=== PATIENT | female | born 1985 | race Caucasian/White ===

== ENCOUNTER → 2021-05-04 10:09 | Outpatient (BNVA) | payer MEDICAID, SELFPAY | PROVIDERS: PCP Internal Medicine; Visit Provider Internal Medicine ==

== ENCOUNTER 2021-05-11 10:39 | Outpatient (REF) | payer MEDICAID, SELFPAY ==
[2021-05-11 11:22] LABS: MANUAL DIFF FLAG NO
[2021-05-11 11:34] LABS: Basophils Percent Auto 0.2 % (0-2); Eosinophils Absolute Auto 0.3 X10*3/uL (0.0-0.4); Eosinophils Percent Auto 2.3 % (0-4); Hematocrit 42.6 % (37-47); Imm Gran Abs Auto 0.05 X10*3/uL (0.00-0.03); Imm Gran Pct Auto 0.4 % (0.0-0.4); Lymphocytes Percent Auto 31.6 % (20-40); Mean Corpuscular HGB Conc 32.9 g/dl (31.0-35.0); Mean Corpuscular Hemoglobin 28.6 pg (27.0-33.0); Mean Corpuscular Volume 86.9 fL (80-98); Mean Platelet Volume 11.6 fL (9.4-12.3); Monocytes Absolute Auto 0.5 X10*3/uL (0.1-1.2); Monocytes Percent Auto 3.8 % (2-11); Neutrophils Absolute Auto 7.8 X10*3/uL (2.0-8.3); Neutrophils Percent Auto 61.7 % (45-73); Platelet Count 317 X10*3/uL (160-400); Red Cell Distribution Width 12.1 % (11.0-16.0); White Blood Count 12.6 X10*3/uL (4.8-10.8)
[2021-05-11 12:16] LABS: ~HepC Num1 0.11 S/CO (0.00-0.79); ~Hepatitis C Antibody Nonreactive (Nonreactive)
[2021-05-11 12:37] LABS: Folate 11.6 ng/mL (> or = 4.0); HBS Num1 > 1000.00 mIU/mL (0-7.99); HIV AB/AG Nonreactive (Nonreactive); HIV Num 1 0.05 S/CO (0.00-0.99); Vitamin B12 462 pg/mL (200-900); ~Hepatitis B Surface Antibody REACTIVE (Nonreactive)
[2021-05-11 12:39] LABS: Vitamin D 25-OH Total 39.5 ng/mL (>30)
[2021-05-11 12:40] LABS: Alanine Aminotransferase 25 U/L (0-31); Albumin Level 4.3 g/dL (3.5-5.0); Alkaline Phosphatase 144 U/L (39-117); Anion Gap 16 (12-20); Aspartate Amino Transferase 18 U/L (5-31); Bilirubin Total 0.2 mg/dL (0.0-1.0); Blood Urea Nitrogen 14 mg/dL (9-16); Calcium 9.6 mg/dL (8.4-10.2); Carbon Dioxide 21 mmol/L (22-29); Chloride 104 mmol/L (96-108); Cholesterol 166 mg/dL; Estimated Glomerular Filt Rate > 60; Glucose Random 121 mg/dL (60-115); HDL Cholesterol 35 mg/dL; LDL Cholesterol Calculated 102 mg/dl; Magnesium 2.2 mg/dL (1.6-2.6); Potassium 4.4 mmol/L (3.3-5.1); Sodium 137 mmol/L (135-145); Total Protein 7.1 g/dL (6.5-8.0); Triglycerides 145 mg/dL
[2021-05-11 12:51] LABS: Free T4 (Free Thyroxine) 0.88 ng/dL (0.71-1.85); Thyroid Stimulating Hormone 0.72 uIU/mL (0.32-4.0)
[2021-05-11 13:49] LABS: Estimated Average Glucose 114 mg/dL; Hemoglobin A1c % 5.6 %
[2021-05-12 11:47] LABS: Thyroglobulin Antibodies <1 IU/mL (< or = 1); Thyroid Peroxidase Antibodies <1 IU/mL (<9)
[2021-05-12 17:56] LABS: Triiodothyronine T3 Total 194 ng/dL (76-181)
[2021-05-16 19:36] LABS: Thyrotropin Receptor Antibody <1.00 IU/L (<=2.00)
[2021-05-17 14:26] LABS: Thyroid Stimulating Immunoglob <89 % baseline (<140)
== END 2021-05-11 10:40 | disposition home or self-care (01) ==
LOC: HO.LAB 10:39
PROVIDERS: Absent Provider Counselor Addiction (Substance Use Disorder); PCP Internal Medicine; Visit Provider Internal Medicine
DX: E05.00 Thyrotoxicosis with diffuse goiter without thyrotoxic crisis or storm (principal); F43.12 Post-traumatic stress disorder, chronic; F41.1 Generalized anxiety disorder; F33.2 Major depressive disorder, recurrent severe without psychotic features; F11.21 Opioid dependence, in remission; F14.21 Cocaine dependence, in remission
CPT/HCPCS: 36415; 80053; 80061; 82306; 82607; 82746; 83036; 83520; 83735; 84439; 84443; 84445; 84480; 85025; 86376; 86706; 86800; 86803; 87389

== ENCOUNTER 2021-06-08 10:18 | Outpatient (REF) | payer MEDICAID, SELFPAY ==
--- NOTE | ~2021-06-08 | US_ITS ---
EXAMINATION: US THYROID CLINICAL INFORMATION: Nontoxic multinodular goiter. COMPARISON: Ultrasound soft tissue head/neck thyroid dated 11/19/2018. TECHNIQUE: Linear transducer grayscale and color Doppler examination with attention to the region of the thyroid. FINDINGS: SIZE: Measurements of the thyroid lobes and nodules are given in sagittal, anteroposterior and transverse dimensions respectively. Right Thyroid Lobe: 6.4 x 3.4 x 3.5 cm, volume 39.5 mL. Previously 5.1 x 3.1 x 3.2 cm, volume 26.4 mL. Parenchyma: The gland echotexture is heterogeneous. Thyroid vascularity is normal. Left Thyroid Lobe: 5.6 x 1.9 x 2.0 cm, volume 11.0 mL. Previously 4.2 x 1.6 x 1.1 cm, volume 4.0 mL. Parenchyma: The gland echotexture is homogeneous. Thyroid vascularity is normal. Isthmus: 0.3 cm in maximum AP dimension. Previously 0.2 cm. Estimated total number of nodules greater than or equal to 1 cm: 1. Pmp Certified Project Manager nodules are described as follows: 1. Location: Right mid/inferior. Size: 4.1 x 3.3 x 3.4 cm, volume 23.6 mL. Previously: 4.5 x 2.7 x 3.1 cm, volume 19.7 mL. Nodule characteristics: Composition: Solid/almost completely solid (2). Echogenicity: Hypoechoic (2). Shape: Not taller than wide (0). Margins: Smooth (0). Echogenic Foci: None (0). ACR TI-RADS total points: 4 ACR TI-RADS category: 4 Significant change in size (>/= 20% in 2 dimensions and minimal increase of 2 mm or 50% or greater increase in volume): None Change in features: None Change in ACR TI-RADS risk category: Not applicable NODES: No lymphadenopathy is seen in the tissue surrounding the thyroid gland. US/US thyroid IMPRESSION: 1. Solitary heterogeneous nodule right lobe, stable. 2. The rest of the thyroid gland is unremarkable. ACR TI-RADS RECOMMENDATION REFERENCE: Ultrasound-guided fine-needle aspiration, followup ultrasound, no further follow up. * TR1 (0 point) and TR 2 (2 points): No FNA or follow up * TR3 (3 points): FNA if more than or equal to 2.5 cm in maximum dimension, followup ultrasound in 1, 3 and 5 years if 1.5 to 2.4 cm in maximum dimension. * TR4 (4-6 points): FNA if more than or equal to 1.5 cm in maximum dimension, followup ultrasound in 1, 2, 3 and 5 years if 1 to 1.4 cm in maximum dimension. * TR5 (more than or equal to 7 points): FNA if more than or equal to 1 cm in maximum dimension, followup ultrasound every year for 5 years if 0.5 to 0.9 cm in maximum dimension. * TR3, TR4 or TR5 nodules that are below the size threshold for follow up receive no follow up.
== END 2021-06-08 10:19 | disposition home or self-care (01) ==
LOC: HO.HMGCX 10:18
PROVIDERS: PCP Internal Medicine; Visit Provider Internal Medicine
DX: E04.2 Nontoxic multinodular goiter (principal)
CPT/HCPCS: 76536

== ENCOUNTER → 2021-07-18 07:36 | Outpatient (BNVA) | payer MEDICAID, SELFPAY | PROVIDERS: PCP Internal Medicine; Visit Provider Internal Medicine ==

== ENCOUNTER 2021-09-29 14:00 | Outpatient (REF) | payer MEDICAID, SELFPAY ==
[2021-09-29 16:05] LABS: Binax Internal Control QC Valid; Binax Now Covid-19 Ag Positive (Negative)
== END 2021-09-29 14:01 | disposition home or self-care (01) ==
LOC: HO.LAB 14:00
PROVIDERS: Visit Provider Internal Medicine
DX: Z20.822 Contact with and (suspected) exposure to COVID-19 (principal)
CPT/HCPCS: 36415; C9803

== ENCOUNTER 2021-10-06 10:08 | Outpatient (REF) | payer MEDICAID, SELFPAY ==
[2021-10-06 11:48] LABS: COVID-19 Test Positive (Negative)
== END 2021-10-06 10:09 | disposition home or self-care (01) ==
LOC: HO.LAB 10:08
PROVIDERS: Visit Provider Internal Medicine
DX: Z20.822 Contact with and (suspected) exposure to COVID-19 (principal)
CPT/HCPCS: 87635; C9803

== ENCOUNTER 2021-11-09 12:01 | Outpatient (REF) | payer MEDICAID, SELFPAY ==
[2021-11-09 12:30] LABS: COVID-19 Test Negative (Negative)
== END 2021-11-09 12:02 | disposition home or self-care (01) ==
LOC: HO.LAB 12:01
PROVIDERS: Visit Provider Internal Medicine
DX: Z20.822 Contact with and (suspected) exposure to COVID-19 (principal)
CPT/HCPCS: 87635; C9803

== ENCOUNTER 2022-11-03 11:24 | Emergency (ER) | payer MEDICAID, SELFPAY ==
[2022-11-03 11:30] VITALS: BP 118/72; BP 141/90; PULSE 107; PULSE 110; RESP 18; TEMP 37.3; O2SAT 100; O2SAT 98; BMI 36.5
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
--- OUTSIDE RECORDS SUMMARY | 2022-11-03 12:05 | XMS_ITS | Continuity of Care Document ---
:1985 Author Organization [facility] Address [address] [place] [id number]- Care Team Providers Name Role Phone Mini Hassan MD Primary Care Physician Encounter [facility] [place] Date(s): 06/25/19 - 09/07/[address] [address]- [facility] Attending Physician: Not on Staff, Attending MD Referring Physician: Mini Hassan MD Allergies, Adverse Reactions, Alerts Substance Reaction Severity [...] 06/28/19 8:05:32 EDT, Route to Pharmacy Electronically, [id number], [facility] #[id number] Start Date: 06/28/19 Status: Orderedalbuterol CFC free 90 mcg/inh inhalation aerosol 1, puffs, Inhalation, Every 4 hours, PRN, # 3 each, Refills 3, Tot. Refills 3, Maintenance, 03/28/1914:00:45 EDT, Aerosol, Route to Pharmacy Electronically, [id number], [facility] [id number] Start Date: 03/28/19 Status: Orderedbudesonide 90 mcg/inh [...] 06/28/19 8:05:33 EDT, Route to Pharmacy Electronically, [id number], [facility] #[id number] Start Date: 06/28/19 Status: Orderedmelatonin 10 mg [...] 06/28/19 15:26:32 EDT, Route to Pharmacy Electronically, [id number], [facility] #[id number] Start Date: 06/28/19 Status: OrderedQUEtiapine 50 mg [...] 1Hx of heroin use - last used [id number] reports at OBI visit that she is currently on Methadone 58mg daily - [facility] Social History Social History Type Response Tobacco Use: 4 or less cigarettes(le ss than 1/4 pack)/day in last 30 days. Sex
--- NOTE | 2022-11-03 12:08 | ECG_ITS ---
Test Reason : N/V Blood Pressure : / mmHG Vent. Rate : 108 BPM Atrial Rate : 108 BPM P-R Int : 158 ms QRS Dur : 074 ms QT Int : 336 ms P-R-T Axes : 050 008 011 degrees QTc Int : 450 ms Sinus tachycardia Possible Left atrial enlargement Borderline ECG No previous ECGs available Referred By: Ladonna Melendrez Electronically Signed By:JEROMY DAMON MD
[2022-11-03] MEDS: 0.9 % Sodium Chloride 1,000 ML 999 ML IV (12:20)
[2022-11-03 12:23] LABS: Basophils Percent Auto 0.1 % (0-2); Hematocrit 49.1 % (37.0-47.0); Hemoglobin 16.1 g/dl (12.0-16.0); Imm Gran Abs Auto 0.05 X10*3/uL (0.00-0.03); Imm Gran Pct Auto 0.3 % (0.0-0.4); Lymphocytes Absolute Auto 0.8 X10*3/uL (1.2-4.9); Lymphocytes Percent Auto 4.5 % (20-40); MANUAL DIFF FLAG SCAN; Mean Corpuscular HGB Conc 32.8 g/dl (31.0-35.0); Mean Corpuscular Volume 82.2 fL (80.0-98.0); Mean Platelet Volume 10.6 fL (9.4-12.3); Monocytes Absolute Auto 0.4 X10*3/uL (0.1-1.2); Monocytes Percent Auto 2.4 % (2-11); Neutrophils Absolute Auto 16.9 x10*3/uL (2.0-8.3); Neutrophils Percent Auto 92.7 % (45-73); Platelet Count 316 X10*3/uL (160-400); Red Blood Count 5.97 X10*6/uL (4.20-5.50); Red Cell Distribution Width 12.8 % (11.0-16.0); SCAN SMEAR FLAG 1; White Blood Count 18.2 X10*3/uL (4.8-10.8)
--- NOTE | 2022-11-03 12:28 | PC.NURSE ---
pt a&ox3, tachycardic/hypertensive, afebrile, pt reporting chills/body aches, 20G IV placed left AC, labs drawn, 1L NS running, tech at bedside obtaining EKG. pt pending ED provider.
--- NOTE | 2022-11-03 12:33 | ED.NAVMDI ---
HPI - Nausea/Vomiting/Diarrhea General Chief complaint: Nausea/Vomiting/Diarrhea Stated complaint: V/D per EMS Time Seen by Provider: 11/03/22 12:07 Source: patient Mode of arrival: EMS History of Present Illness HPI Narrative: 37-year-old female who presents with acute onset of nausea and vomiting without preceding abdominal pain or dysuria that started approximately 0230 this morning and she states that her daughter had similar symptoms 3 days ago. She denies any fevers or chills and states that her last diarrheal episode was this morning prior to EMS arrival. She does describe some abdominal wall discomfort since the onset of nausea and vomiting but otherwise is feeling better. Related Data Home Medications Medication Instructions Recorded Confirmed prazosin 5 mg capsule 5 mg PO BEDTIME 05/04/21 07/18/21 sertraline 100 mg tablet 100 mg PO DAILY 05/04/21 07/18/21 methadone 40 mg soluble tablet 73 mg PO DAILY 07/18/21 07/18/21 Previous Rx's Medication Instructions Recorded methimazole 10 mg tablet 10 mg PO DAILY 30 days #30 tabs 05/12/21 ondansetron HCl 4 mg tablet 8 mg PO Q8H PRN nausea and 11/03/22 vomiting 3 days #7 tabs Allergies Allergy/AdvReac Type Severity Reaction Status Date / Time Penicillins [PENICILLINS] Allergy Unknown UNKNOWN Verified 11/03/22 11:30 Sulfa (Sulfonamide Allergy Unknown ANAPHYLAXIS Verified 11/03/22 11:30 Antibiotics) [SULFA (SULFONAMIDE ANTIBIOTICS)] Review of Systems Review of Systems: Pertinent positives and negatives as stated in HPI PMFSH Past Medical History Source: nursing notes reviewed Medical History Multinodular thyroid Subclinical hyperthyroidism Vitamin D deficiency Surgical History Hx of section Hx of wisdom tooth extraction Family History Family History Father Diabetes mellitus Mother HTN (hypertension) Brother Thyroid condition Social History Social History Alcohol intake: never Patient Tobacco Use Status: Current everyday Tobacco user Tobacco use type: Cigarette Cigarettes Per Day: 3 Smoked in Last 30 Days: Yes Substance Use Type: Crack/Cocaine and Heroin Advance Directives: No Advance Directives Information Provided: Yes Patient : No Physical Exam Vital Signs: Vital Signs: Last Vital Signs Temp 99.1 F 11/03/22 11:30 Pulse 107 H 11/03/22 11:30 Resp 18 11/03/22 11:30 BP 141/90 H 11/03/22 11:30 Pulse Ox 98 11/03/22 11:30 O2 Del Method 11/03/22 11:30 BMI result Body Mass Index 36.5 VITAL SIGNS: Reviewed. GENERAL: Well developed, well nourished, in no acute distress. HEAD: Normocephalic/atraumatic EYES: PERRLA, EOMI EARS: Ext canals without abnormality OROPHARYNX: no oral lesions noted, posterior pharynx clear LUNGS: Normal breath sounds. No adventitious sounds or accessory muscle use. SpO2<98> CARDIOVASCULAR: Regular rate and rhythm without noted murmurs ABDOMEN: Soft, non-tender, non-distended with bowel sounds. MUSCULOSKELETAL: No tenderness, deformities, or effusions noted on gross inspection. EXTREMITIES: No cyanosis, clubbing or edema. SKIN: Inspection of the skin reveals no rashes NEUROLOGIC: Alert and oriented x 4. Strength and sensation to light touch were grossly intact x 4. Medications Administered Discontinued Medications Generic Name Dose Route Start Last Admin Trade Name Freq PRN Reason Stop Dose Admin Sodium Chloride 1,000 mls @ 999 mls/hr 11/03/22 12:15 11/03/22 12:20 Ns IV 11/03/22 13:15 999 mls/hr .Q1H1M RONAL Administration Ketorolac Tromethamine 15 mg 11/03/22 13:39 11/03/22 13:43 Ketorolac Tromethamine 30 Mg/Ml Vial IVPUSH 11/03/22 13:40 15 mg ONCE ONE Administration Ondansetron HCl 4 mg 11/03/22 12:31 11/03/22 12:37 Ondansetron Hcl 4 Mg/2 Ml Vial IVPUSH 11/03/22 12:32 4 mg ONCE ONE Administration Ondansetron HCl 4 mg 11/03/22 13:53 11/03/22 14:02 Ondansetron Hcl 4 Mg/2 Ml Vial IVPUSH 11/03/22 13:54 4 mg ONCE ONE Administration Medical Decision Making Medical Decision Making MDM Narrative: 37-year-old female with multiple episodes of nausea/vomiting/diarrhea. On review of all investigations my interpretation is that initial leukocytosis is reactive/stress and response to multiple episodes of nausea and vomiting as patient is afebrile. Patient was provided with Zofran which has eliminated her nausea and vomiting, she also received IV fluids and will be undergoing a p.o. trial. She has no suggestions of bacterial intra-abdominal illness, urinalysis is without acute findings, no stool was obtained and patient is had no further stooling episodes. She states that she is feeling better and if she is able to tolerate oral intake understands that she will be discharged home with a Zofran prescription and strict return precautions. Patient tolerating oral intake and given a GI cocktail as well as Carafate. Differential Diagnosis Differential Diagnoses: The differential diagnosis associated with the presentation includes Please see the discussion above Lab Data MDM Lab Attestation statement: I reviewed the patient's lab results. Please see the discussion above 11/03/22 12:18 11/03/22 12:18 Labs: Lab Results 11/03/22 11/03/22 11/03/22 Range/Units 12:18 12:25 13:37 WBC 18.2 H (4.8-10.8) X10*3/uL RBC 5.97 H (4.20-5.50) X10*6/uL Hgb 16.1 H (12.0-16.0) g/dl Hct 49.1 H (37.0-47.0) % MCV 82.2 (80.0-98.0) fL MCH 27.0 (27.0-33.0) pg MCHC 32.8 (31.0-35.0) g/dl RDW 12.8 (11.0-16.0) % Plt Count 316 (160-400) X10*3/uL MPV 10.6 (9.4-12.3) fL Immature Gran % (Auto) 0.3 (0.0-0.4) % Neut % (Auto) 92.7 H (45-73) % Lymph % (Auto) 4.5 L (20-40) % Gonzales % (Auto) 2.4 (2-11) % Eos % (Auto) 0.0 (0-4) % Baso % (Auto) 0.1 (0-2) % Lymph # (Auto) 0.8 L (1.2-4.9) X10*3/uL Gonzales # (Auto) 0.4 (0.1-1.2) X10*3/uL Eos # (Auto) 0.0 (0.0-0.4) X10*3/uL Baso # (Auto) 0.0 (0.0-0.2) X10*3/uL Abs Immat Gran (auto) 0.05 H (0.00-0.03) X10*3/uL Absolute Neuts (auto) 16.9 H (2.0-8.3) x10*3/uL Absolute Nucleated RBC 0.000 (0.0-0.012) X10*3/uL Nucleated RBC % (auto) 0.0 (0.0-0.2) /100WBC Smear Tech's Comments VERIFIED Sodium 140 (135-145) mmol/L Potassium 4.6 (3.3-5.1) mmol/L Chloride 111 H (96-108) mmol/L Carbon Dioxide 21 L (22-29) mmol/L Anion Gap 13 (12-20) BUN 17 H (9-16) mg/dL Creatinine 0.66 (0.5-1.4) mg/dL Estim Creat Clear Calc 152.3 Estimated GFR > 60 Random Glucose 119 H (60-115) mg/dL Calcium 8.7 D (8.4-10.2) mg/dL Total Bilirubin 0.5 (0.0-1.0) mg/dL AST 18 (5-31) U/L ALT 20 (0-31) U/L Alkaline Phosphatase 130 H (39-117) U/L Total Protein 6.6 (6.5-8.0) g/dL Albumin 4.0 (3.5-5.0) g/dL Lipase 12 (8-78) U/L Urine Color Urine Appearance Urine pH (5.0-9.0) Ur Specific [place] (1.005-1.025) Urine Protein (Neg-Trace) mg/dL Urine Glucose (UA) (Negative) mg/dL Urine Ketones (Negative) mg/dL Urine Blood (Negative) Urine Nitrite (Negative) Ur Leukocyte Esterase (Negative) Urine Test (NEGATIVE) Influenza Type A (PCR) NEGATIVE (Negative) Influenza Type B (PCR) NEGATIVE (Negative) RSV RNA Qual (PCR) NEGATIVE (Negative) SARS-CoV-2 RNA (RT-PCR) NEGATIVE (Negative) 11/03/22 11/03/22 Range/Units 13:37 13:37 WBC (4.8-10.8) X10*3/uL RBC (4.20-5.50) X10*6/uL Hgb (12.0-16.0) g/dl Hct (37.0-47.0) % MCV (80.0-98.0) fL MCH (27.0-33.0) pg MCHC (31.0-35.0) g/dl RDW (11.0-16.0) % Plt Count (160-400) X10*3/uL MPV (9.4-12.3) fL Immature Gran % (Auto) (0.0-0.4) % Neut % (Auto) (45-73) % Lymph % (Auto) (20-40) % Gonzales % (Auto) (2-11) % Eos % (Auto) (0-4) % Baso % (Auto) (0-2) % Lymph # (Auto) (1.2-4.9) X10*3/uL Gonzales # (Auto) (0.1-1.2) X10*3/uL Eos # (Auto) (0.0-0.4) X10*3/uL Baso # (Auto) (0.0-0.2) X10*3/uL Abs Immat Gran (auto) (0.00-0.03) X10*3/uL Absolute Neuts (auto) (2.0-8.3) x10*3/uL Absolute Nucleated RBC (0.0-0.012) X10*3/uL Nucleated RBC % (auto) (0.0-0.2) /100WBC Smear Tech's Comments Sodium (135-145) mmol/L Potassium (3.3-5.1) mmol/L Chloride (96-108) mmol/L Carbon Dioxide (22-29) mmol/L Anion Gap (12-20) BUN (9-16) mg/dL Creatinine (0.5-1.4) mg/dL Estim Creat Clear Calc Estimated GFR Random Glucose (60-115) mg/dL Calcium (8.4-10.2) mg/dL Total Bilirubin (0.0-1.0) mg/dL AST (5-31) U/L ALT (0-31) U/L Alkaline Phosphatase (39-117) U/L Total Protein (6.5-8.0) g/dL Albumin (3.5-5.0) g/dL Lipase (8-78) U/L Urine Color Yellow Urine Appearance Clear Urine pH 5.5 (5.0-9.0) Ur Specific [place] 1.025 (1.005-1.025) Urine Protein Negative (Neg-Trace) mg/dL Urine Glucose (UA) Negative (Negative) mg/dL Urine Ketones Negative (Negative) mg/dL Urine Blood Negative (Negative) Urine Nitrite Negative (Negative) Ur Leukocyte Esterase Negative (Negative) Urine Test NEGATIVE (NEGATIVE) Influenza Type A (PCR) (Negative) Influenza Type B (PCR) (Negative) RSV RNA Qual (PCR) (Negative) SARS-CoV-2 RNA (RT-PCR) (Negative) Independent Interpretation I performed an independent interpretation of an: EKG Interpretation: Sinus tachycardia, HR-108, no STEMI, NH/QRS/QTC is within normal limits. External Record Review External record reviewed: Outpatient record Critical Care Time Critical Care Time Critical Care Time: Yes Total Critical Care Time: 30 Attestation: I personally attest to this time spent taking care of the patient. Discharge Plan Discharge Clinical Impression: Gastroenteritis Patient Disposition: Home, Self-Care Instructions: Gastroenteritis (ED), Nutrition Tips for Relief of Diarrhea (ED) Additional Instructions: 1. Resume all home medications as prescribed. 2. Continue to increase the amount of fluid intake, you have been prescribed antinausea medications to help out with this. 3. Please follow-up with your primary care provider in the next 2-3 days. Return to the ER for any worsening symptoms. Prescriptions: New ondansetron HCl 4 mg tablet 8 mg PO Q8H PRN (Reason: nausea and vomiting) 3 Days Qty: 7 0RF No Action methimazole 10 mg tablet 10 mg PO DAILY 30 Days Qty: 30 2RF sertraline 100 mg tablet 100 mg PO DAILY prazosin 5 mg capsule 5 mg PO BEDTIME methadone 40 mg tablet,soluble 73 mg PO DAILY Referrals: Mini Hassan MD [Primary Care Provider] -
[2022-11-03] MEDS: ondansetron HCL 4 MG/2 ML VIAL IVPUSH ×2 (12:37→14:02)
[2022-11-03 12:48] LABS: SLIDE REVIEW VERIFIED
[2022-11-03 13:16] LABS: Influenza A PCR NEGATIVE (Negative); Influenza B PCR NEGATIVE (Negative); Resp Syncy Virus RNA Qual PCR NEGATIVE (Negative); SARS COV2 PCR INHOUSE NEGATIVE (Negative)
[2022-11-03] MEDS: Ketorolac Tromethamine 30 MG/ML VIAL 15 MG IVPUSH (13:43)
[2022-11-03 13:46] LABS: Appearance Urine Clear; Color Urine Yellow; Glucose Urine UA Negative (Negative); Leukocyte Esterase Urine Negative (Negative); Nitrite Urine Negative (Negative); PH 5.5 (5.0-9.0); Specific Gravity - Urine 1.025 (1.005-1.025); Urine Blood Negative (Negative); Urine Ketones Negative (Negative); Urine Protein Negative (Neg-Trace)
[2022-11-03 13:49] LABS: UPreg QC Valid YES; Urine Pregnancy NEGATIVE (NEGATIVE)
[2022-11-03 14:04] LABS: Alanine Aminotransferase 20 U/L (0-31); Alkaline Phosphatase 130 U/L (39-117); Anion Gap 13 (12-20); Aspartate Amino Transferase 18 U/L (5-31); Bilirubin Total 0.5 mg/dL (0.0-1.0); Blood Urea Nitrogen 17 mg/dL (9-16); Calcium 8.7 mg/dL (8.4-10.2); Carbon Dioxide 21 mmol/L (22-29); Chloride 111 mmol/L (96-108); Creatinine Clr Calc Pharmacy 152.3; Estimated Glomerular Filt Rate > 60; Glucose Random 119 mg/dL (60-115); Lipase 12 U/L (8-78); Potassium 4.6 mmol/L (3.3-5.1); Sodium 140 mmol/L (135-145); Total Protein 6.6 g/dL (6.5-8.0)
[2022-11-03] MEDS: Magnesium Hydrox/Alum Hydrox 30 ML ORAL.SUSP PO (15:12)
[2022-11-03] MEDS: Sucralfate Oral Suspension 1 GM/10 ML ORAL.SUSP PO (15:12)
[2022-11-03] MEDS: Lidocaine HCl Viscous 2 % 15 ML SOLUTION 10 ML MUCOUS MEM (15:12)
== END 2022-11-03 16:18 | disposition home or self-care (01) ==
PROVIDERS: Emergency Provider Student in an Organized Health Care Education/Training Program; PCP Internal Medicine
DX: K52.9 Noninfective gastroenteritis and colitis, unspecified (principal); R11.2 Nausea with vomiting, unspecified; R06.02 Shortness of breath; Z20.822 Contact with and (suspected) exposure to COVID-19; Z20.828 Contact with and (suspected) exposure to other viral communicable diseases; Z79.899 Other long term (current) drug therapy
CPT/HCPCS: 0241U; 36415; 80053; 81003; 81025; 83690; 85025; 93005; 96374; 96375; 96376; 99284; 99285; J1885; J2405

== ENCOUNTER 2023-04-04 08:32 | Outpatient (AMB) | payer MEDICAID, SELFPAY ==
--- NOTE | 2023-04-04 08:32 | A.OFFVIS_ITS ---
Intake Intake Visit Reasons: F/U Thyrotoxicosis Allergies Penicillins [PENICILLINS] Allergy (Unknown, Verified 04/04/23 09:37) UNKNOWN Sulfa (Sulfonamide Antibiotics) [SULFA (SULFONAMIDE ANTIBIOTICS)] Allergy (Unknown, Verified 04/04/23 09:37) ANAPHYLAXIS Medication List - Last Reconciled 04/04/23 by Tamika Briones, DO atomoxetine 10 mg PO QAM buspirone 10 mg PO DAILY PRN ibuprofen 400 mg PO Q8H PRN methadone 73 mg PO DAILY prazosin 5 mg PO BEDTIME quetiapine 50 mg PO BEDTIME PRN sertraline 100 mg PO DAILY HPI HPI Comments History of Present Illness Details 37 YO M/F with PMHx who is seen in F/U for a Multinodular Thyroid and subclinical hyperthyroidism. She was lost to follow up since 2020 and recently called to reestablish care. She was last seen by me in 2020. She was noted to have subclinical hyperthyroidism as well as a large 4.5 cm R sided thyroid nodule. She underwent FNA biopsy of this nodule 11/28/2018, with benign cytology. She was undergoing workup for her hyperthyroidism at that time, but found out she was and was lost to F/U. This was in 2018, and she then reestablished care in 2020 and was asked to have a thyroid uptake and scan and complete labs, but she failed to do so. She was previously started on Methimazole 10 mg PO daily by her Therapist Zoila Herrmann APRN. This was 08/2020. She has tolerated methimazole well without development of rash, jaundice or frequent infection. Labs revealed TSH low normal with elevated TT3. All antibodies were negative including TRAB, TSI, TPO and TG antibodies. She saw me after the fact in 2020 and was asked to repeat labs and F/U, as well as complete a thyroid uptake and scan, but she failed to do so. She reports feeling fatigued today. ?Denies any history of head or neck irradiation. Denies any family history of thyroid cancer. She does have a family history of hyeprthyroidism in her brother. ?Thyroid US: Right Thyroid Lobe: 6.4 x 3.4 x 3.5 cm, volume 39.5 mL. Previously 5.1 x 3.1 x 3.2 cm, volume 26.4 mL. Parenchyma: The gland echotexture is heterogeneous. Thyroid vascularity is normal. Left Thyroid Lobe: 5.6 x 1.9 x 2.0 cm, volume 11.0 mL. Previously 4.2 x 1.6 x 1.1 cm, volume 4.0 mL. Parenchyma: The gland echotexture is homogeneous. Thyroid vascularity is normal. Isthmus: 0.3 cm in maximum AP dimension. Previously 0.2 cm. Estimated total number of nodules greater than or equal to 1 cm: 1. Office Assistance nodules are described as follows: 1.? Location: Right mid/inferior. ?? ? Size: 4.1 x 3.3 x 3.4 cm, volume 23.6 mL. ?? ? Previously: 4.5 x 2.7 x 3.1 cm, volume 19.7 mL. ?? ? Nodule characteristics: ?? ? Composition: Solid/almost completely solid (2). ?? ? Echogenicity: Hypoechoic (2). ?? ? Shape: Not taller than wide (0). ?? ? Margins: Smooth (0). ?? ? Echogenic Foci: None (0). ? ACR TI-RADS total points: 4 ?? ? ACR TI-RADS category: 4 ? Significant change in size (>/= 20% in 2 dimensions and minimal increase of 2 mm or 50% or greater increase in volume): None ?? ? Change in features: None ?? ? Change in ACR TI-RADS risk category: Not applicable NODES: No lymphadenopathy is seen in the tissue surrounding the thyroid gland. Labs: Laboratory Tests 11/21/18 05/11/21 05/11/21 16:35 10:59 10:59 TSH 0.72 Free T4 0.88 Total T3 194 H Thyroid Stim Immun oglob TSH Receptor Antib darline <6.0 Thyroglobulin Anti body Thyroid Peroxidase Ab TSH Receptor Ab 05/11/21 10:59 TSH Free T4 Total T3 Thyroid Stim Immun oglob <89 TSH Receptor Antib darline Thyroglobulin Anti body <1 Thyroid Peroxidase Ab <1 TSH Receptor Ab <1.00 PFSH Medical History Multinodular thyroid Subclinical hyperthyroidism Vitamin D deficiency Surgical History Hx of section Hx of wisdom tooth extraction Family History Father Diabetes mellitus Mother HTN (hypertension) Brother Thyroid condition Social History Alcohol intake: never Patient Tobacco Use Status: Current everyday Tobacco user Tobacco use type: Cigarette Cigarettes Per Day: 3 Substance Use Type: Crack/Cocaine and Heroin Assessment & Plan Assessment & Plan (1) Multinodular thyroid: Code(s): E04.2 - Nontoxic multinodular goiter Plan: Patient with a multinodular thyroid. She previously underwent an FNA biopsy of her R lobe 4.5 cm thyroid nodule 11/28/18 with benign cytology. She is due for a repeat thyroid US. I have ordered it at this time. We will also check TFTs as I do suspect this may represent a hot nodule. If labs reveal hyperthyroidism I will schedule her for a thyroid uptake and scan. She will F/U to review these results. All of her questions were answered. She is in agreement with this plan of care. I spent 20 minutes in reviewing the record, seeing the patient and documenting in the medical record, including 5 minutes on the phone with the Patient. (2) Subclinical hyperthyroidism: Code(s): E05.90 - Thyrotoxicosis, unspecified without thyrotoxic crisis or storm Plan: Patient with subclinical hyperthyroidism in the past. She has not undergone a full workup as she was lost to F/U. Plan for now is to repeat her TFTs. If hyperthyroidism confirmed we will then check a thyroid uptake and scan. We will also check an US of the thyroid now. Orders: Orders Triiodothyronine T3 Total Today E04.2 - Nontoxic multinodular goiter, E05.90 - Thyrotoxicosis, unspecified without thyrotoxic crisis or storm Free T4 (Free Thyroxine) Today E04.2 - Nontoxic multinodular goiter, E05.90 - Thyrotoxicosis, unspecified without thyrotoxic crisis or storm Thyroid Stimulating Hormone Today E04.2 - Nontoxic multinodular goiter, E05.90 - Thyrotoxicosis, unspecified without thyrotoxic crisis or storm US biopsy thyroid Today E04.2 - Nontoxic multinodular goiter Telehealth Telehealth Location of provider rendering services: practice address Location of patient: address on file Patient Identification confirmed using: Name, : Yes Telehealth method: voice only Patient verbally consented to treatment: Yes Patient verbally consented to billing insurance company: Yes Patient informed of any privacy concerns related to visit: Yes Coding Level of Care Code Tele Est Pt Level 3 (51130) Diagnoses Multinodular thyroid E04.2 Subclinical hyperthyroidism E05.90
== END 2023-04-04 10:25 | disposition home or self-care (01) ==
LOC: HO.ENCR 08:32
PROVIDERS: PCP Internal Medicine; Visit Provider Internal Medicine
DX: E04.2 Nontoxic multinodular goiter (principal); E05.90 Thyrotoxicosis, unspecified without thyrotoxic crisis or storm
CPT/HCPCS: 99213

== ENCOUNTER → 2023-04-04 08:32 | Outpatient (BNVA) | payer MEDICAID, SELFPAY | PROVIDERS: PCP Internal Medicine; Visit Provider Internal Medicine ==

== ENCOUNTER 2023-11-03 12:04 | Emergency (ER) | payer MEDICAID, SELFPAY ==
--- NOTE | ~2023-11-03 | US_ITS ---
EXAMINATION: US VENOUS ULTRASOUND WITH DOPPLER LOWER EXTREMITY, BILATERAL CLINICAL INFORMATION: Pain and leg swelling COMPARISON: None available. TECHNIQUE: Ultrasound of the deep veins is performed from the hip to the calf with compression sonography and color and pulse Doppler assessment. Spectral analysis with color-flow imaging is performed. FINDINGS: RIGHT: There is normal venous compression and respiratory variation and augmented flow. The visualized common femoral vein, superficial femoral vein, profunda femoral vein, popliteal vein, and the trifurcation region shows no evidence of deep venous thrombosis. There is no significant popliteal fossa cyst. LEFT: There is normal venous compression and respiratory variation and augmented flow. The visualized common femoral vein, superficial femoral vein, profunda femoral vein, popliteal vein, and the trifurcation region shows no evidence of deep venous thrombosis. There is no significant popliteal fossa cyst. If the patient's symptoms persist, followup ultrasound in 5 days 7 days might be of value to exclude proximal propagation from a non-visualized calf vein. US/US venous duplex LE BI IMPRESSION: No DVT demonstrated in the right or left lower extremity.
--- NOTE | 2023-11-03 12:14 | ED.GENADULT ---
HPI - General Adult General Chief complaint: General Medical Stated complaint: Bilateral leg swelling Time Seen by Provider: 11/03/23 12:58 Source: patient Mode of arrival: ambulatory Limitations: no limitations History of Present Illness HPI narrative: 38 yo female with PM of IVDA notes leg swelling redness and pain no trauma does not inject into the legs she has been working at [email or web address] recently so on feet more no hx of hep C and no hx of CHF. She does not some recent increase in fatigue and dyspnea going up the stairs. MD complaint: leg swelling and pain Onset (ago): day(s) (several) Location: left, right and lower extremity Radiation: non-radiation Severity: moderate Quality: aching Pain Consistency: constant Relieving factors: rest Exacerbating factors: movement Associated symptoms: shortness of breath Treatments prior to arrival: none Related Data Home Medications Medication Instructions Recorded Confirmed prazosin 5 mg capsule 5 mg PO BEDTIME 05/04/21 04/04/23 sertraline 100 mg tablet 100 mg PO DAILY 05/04/21 04/04/23 methadone 40 mg soluble tablet 73 mg PO DAILY 07/18/21 04/04/23 atomoxetine 10 mg capsule 10 mg PO QAM 04/04/23 04/04/23 buspirone 10 mg tablet 10 mg PO DAILY PRN 04/04/23 04/04/23 quetiapine 50 mg tablet 50 mg PO BEDTIME PRN 04/04/23 04/04/23 Previous Rx's Medication Instructions Recorded ibuprofen 400 mg tablet 400 mg PO Q8H PRN fever #14 tabs 11/03/22 cephalexin 500 mg capsule 500 mg PO QID 7 days #28 caps 11/03/23 fluconazole 150 mg tablet 150 mg PO Q3D 2 doses #2 tabs 11/03/23 furosemide 20 mg tablet (Lasix) 20 mg PO DAILY #5 tabs 11/03/23 ibuprofen 600 mg tablet 600 mg PO Q6H PRN pain #30 tabs 11/03/23 Allergies Allergy/AdvReac Type Severity Reaction Status Date / Time Penicillins [PENICILLINS] Allergy Unknown UNKNOWN Verified 11/03/23 12:30 Sulfa (Sulfonamide Allergy Unknown ANAPHYLAXIS Verified 11/03/23 12:30 Antibiotics) [SULFA (SULFONAMIDE ANTIBIOTICS)] Review of Systems Review of Systems: Constitutional : No Fever, No Chills ENT/Mouth : No sore throat, No Rhinorrhea, No Swallowing Difficulty Eyes: No Eye Pain, No Swelling, No Redness Cardiovascular : No Chest Pain, positive SOB, No Orthopnea, positive Edema Respiratory : No Cough, No Sputum, No Wheezing, positive dyspnea Gastrointestinal : No Nausea, No Vomiting, No Diarrhea, No abdominal Pain, No Hematochezia, No Melena Genitourinary : No Dysuria, No Urinary Frequency, No Hematuria Musculoskeletal : No joint pain, No Myalgias Skin : No Skin Lesions, pos rash Neuro : No Weakness, No Numbness, No Dizziness, No Headache Psych : No Anxiety/Panic, No Depression All other systems reviewed and are negative [facility] Past Medical History Attestation statement: The following information was validated with the patient. Source: old records reviewed Medical History Vitamin D deficiency Subclinical hyperthyroidism Multinodular thyroid Surgical History Hx of section Hx of wisdom tooth extraction Family History Family History Father Diabetes mellitus Mother HTN (hypertension) Brother Thyroid condition Social History Social History Alcohol intake: never Patient Tobacco Use Status: Current everyday Tobacco user Tobacco use type: Cigarette Cigarettes Per Day: 3 Substance Use Type: Crack/Cocaine and Heroin Advance Directives: No Physical Exam ED Vital Signs: Vital Signs - 24 hr 11/03/23 12:28 Temperature 98.7 F Pulse Rate 55 Respiratory Rate 20 Blood Pressure 130/64 Pulse Oximetry 94 Oxygen Delivery Method Room Air BMI result Body Mass Index 42.1 Appearance: Alert. Oriented X3. No acute distress. Eyes: Pupils equal, round and reactive to light. ENT: Pharynx normal. Neck: Normal inspection. Neck supple. CVS: Normal heart rate and rhythm. Pulses normal. Respiratory: No respiratory distress. Breath sounds normal. Abdomen: Soft and nontender. Skin: Skin warm and dry. Normal skin color. Normal skin turgor. Extremities: non pitting edema both legs swollen mild red rash but not circumferental some warmth no crepitus no abscess noted Neuro: Oriented X 3. No motor deficit. No sensory deficit. Course Course Course Narrative: This is an RME: Additional HPI, ROS, PE not included below will be deferred to primary provider. Patient is a 38 year old female who presents emergency department for evaluation of bilateral extremity swelling x 3-4 days, with redness, pain. Reports new dyspnea on exertion when climbing 3 flights of stairs to her home, denies shortness of breath at rest, denies chest pain. Reports a history of hyperthyroidism, previously taking methimazole but has not been on for the past year nor following up with her doctor. history of opiate dependence, on methadone, over past 2 weeks she has began using again due to dental pain, snorting and injecting heroin into her arms, denies injecting into legs/feet. Plan: Labs Medical Decision Making Medical Decision Making [facility] Narrative: 38 yo female with PMH of IVDA at this time here with leg swelling and faint red rash does not inject into legs no signs of abscess, compartments are soft and compressible and she is NV intact - labs, TSH, BNP and liver tests. Denies hx of hep C. Will obtain US to rule out DVT. if negative workup will start on oral cephalexin and brief diuretic Differential Diagnosis Differential Diagnoses: The differential diagnosis associated with the presentation includes liver issue, DVT, cellulitis Admission/Observation Consideration of admission/observation: Escalation of care including admission/observation considered no signs of DVT labs and VS stable Lab Data [facility] Lab Attestation statement: I reviewed the patient's lab results. 11/03/23 13:28 11/03/23 13:28 Labs: Lab Results 11/03/23 Range/Units 13:28 WBC 8.3 (4.8-10.8) X10*3/uL RBC 4.30 D (4.20-5.50) X10*6/uL Hgb 11.6 L D (12.0-16.0) g/dl Hct 35.5 L D (37.0-47.0) % MCV 82.6 (80.0-98.0) fL MCH 27.0 (27.0-33.0) pg MCHC 32.7 (31.0-35.0) g/dl RDW 12.8 (11.0-16.0) % Plt Count 228 D (160-400) X10*3/uL MPV 11.0 (9.4-12.3) fL Immature Gran % (Auto) 0.2 (0.0-0.4) % Neut % (Auto) 59.3 (45-73) % Lymph % (Auto) 33.0 (20-40) % [place] % (Auto) 4.5 (2-11) % Eos % (Auto) 2.5 (0-4) % Baso % (Auto) 0.5 (0-2) % Lymph # (Auto) 2.7 (1.2-4.9) X10*3/uL [place] # (Auto) 0.4 (0.1-1.2) X10*3/uL Eos # (Auto) 0.2 (0.0-0.4) X10*3/uL Baso # (Auto) 0.0 (0.0-0.2) X10*3/uL Abs Immat Gran (auto) 0.02 (0.00-0.03) X10*3/uL Absolute Neuts (auto) 4.9 (2.0-8.3) x10*3/uL Absolute Nucleated RBC 0.000 (0.0-0.012) X10*3/uL Nucleated RBC % (auto) 0.0 (0.0-0.2) /100WBC Sodium 138 (135-145) mmol/L Potassium 3.5 (3.3-5.1) mmol/L Chloride 102 (96-108) mmol/L Carbon Dioxide 28 (22-29) mmol/L Anion Gap 12 (12-20) BUN 15 (9-16) mg/dL Creatinine 0.74 (0.5-1.4) mg/dL Estim Creat Clear Calc 131.6 Estimated GFR > 60 Random Glucose 140 H (60-115) mg/dL Calcium 9.2 (8.4-10.2) mg/dL Magnesium 2.2 (1.6-2.6) mg/dL Total Bilirubin 0.2 (0.0-1.0) mg/dL AST 28 (5-31) U/L ALT 29 (0-31) U/L Alkaline Phosphatase 96 (39-117) U/L B-Natriuretic Peptide 89 (<100) pg/mL Total Protein 6.5 (6.5-8.0) g/dL Albumin 3.6 (3.5-5.0) g/dL TSH 0.04 L (0.32-4.0) uIU/mL Free T4 0.92 (0.71-1.85) ng/dL Independent Interpretation I performed an independent interpretation of an: Ultrasound (no DVT) Radiology Impression Discussion of test interpretation with radiology: I have reviewed the radiologist's reading. Prescription Management I considered prescription management with: Antibiotic and Other Discharge Plan Discharge Clinical Impression: Leg edema Cellulitis Qualifiers: Site of cellulitis: extremity Site of cellulitis of extremity: lower extremity Laterality: unspecified laterality Qualified Code(s): L03.119 - Cellulitis of unspecified part of limb Patient Disposition: Home, Self-Care Instructions: Cellulitis (ED), Leg Edema (ED) Additional Instructions: labs reassuring - normal kidney function, congestive heart failure tests, liver tests, no blood clot at this time will start on water pills and antibiotics return for worsening symptoms increased swelling redness or fevers wear tight fitting compressive socks and keep legs elevated Prescriptions: New cephalexin 500 mg capsule 500 mg PO QID 7 Days Qty: 28 0RF furosemide [Lasix] 20 mg tablet 20 mg PO DAILY Qty: 5 0RF fluconazole 150 mg tablet 150 mg PO Q3D Qty: 2 0RF Rx Instructions: may repeat second dose 72 hrs after first dose if symptoms persist ibuprofen 600 mg tablet 600 mg PO Q6H PRN (Reason: pain) Qty: 30 0RF No Action ibuprofen 400 mg tablet 400 mg PO Q8H PRN (Reason: fever) Qty: 14 0RF sertraline 100 mg tablet 100 mg PO DAILY prazosin 5 mg capsule 5 mg PO BEDTIME methadone 40 mg tablet,soluble 73 mg PO DAILY quetiapine 50 mg tablet 50 mg PO BEDTIME PRN buspirone 10 mg tablet 10 mg PO DAILY PRN atomoxetine 10 mg capsule 10 mg PO QAM
[2023-11-03 12:28] VITALS: BP 130/64; PULSE 55; RESP 20; TEMP 37.1; O2SAT 94; BMI 42.1
[2023-11-03 13:33] LABS: Basophils Percent Auto 0.5 % (0-2); Eosinophils Absolute Auto 0.2 X10*3/uL (0.0-0.4); Eosinophils Percent Auto 2.5 % (0-4); Hematocrit 35.5 % (37.0-47.0); Hemoglobin 11.6 g/dl (12.0-16.0); Imm Gran Abs Auto 0.02 X10*3/uL (0.00-0.03); Imm Gran Pct Auto 0.2 % (0.0-0.4); Lymphocytes Absolute Auto 2.7 X10*3/uL (1.2-4.9); MANUAL DIFF FLAG NO; Mean Corpuscular HGB Conc 32.7 g/dl (31.0-35.0); Mean Corpuscular Volume 82.6 fL (80.0-98.0); Monocytes Absolute Auto 0.4 X10*3/uL (0.1-1.2); Monocytes Percent Auto 4.5 % (2-11); Neutrophils Absolute Auto 4.9 x10*3/uL (2.0-8.3); Neutrophils Percent Auto 59.3 % (45-73); Platelet Count 228 X10*3/uL (160-400); Red Cell Distribution Width 12.8 % (11.0-16.0); White Blood Count 8.3 X10*3/uL (4.8-10.8)
[2023-11-03 13:53] LABS: B Type Natriuretic Peptide 89 pg/mL (<100)
[2023-11-03 13:56] LABS: Alanine Aminotransferase 29 U/L (0-31); Albumin Level 3.6 g/dL (3.5-5.0); Alkaline Phosphatase 96 U/L (39-117); Anion Gap 12 (12-20); Aspartate Amino Transferase 28 U/L (5-31); Bilirubin Total 0.2 mg/dL (0.0-1.0); Blood Urea Nitrogen 15 mg/dL (9-16); Calcium 9.2 mg/dL (8.4-10.2); Carbon Dioxide 28 mmol/L (22-29); Chloride 102 mmol/L (96-108); Creatinine Clr Calc Pharmacy 131.6; Estimated Glomerular Filt Rate > 60; Glucose Random 140 mg/dL (60-115); Magnesium 2.2 mg/dL (1.6-2.6); Potassium 3.5 mmol/L (3.3-5.1); Sodium 138 mmol/L (135-145); Total Protein 6.5 g/dL (6.5-8.0)
[2023-11-03 14:10] LABS: TSH reflex Free T4 0.04 uIU/mL (0.32-4.0)
[2023-11-03 14:43] LABS: Free T4 (Free Thyroxine) 0.92 ng/dL (0.71-1.85)
== END 2023-11-03 16:15 | disposition home or self-care (01) ==
PROVIDERS: Nurse Practitioner Family; Emergency Provider Emergency Medicine; PCP Internal Medicine
DX: L03.116 Cellulitis of left lower limb (principal); L03.115 Cellulitis of right lower limb; R60.0 Localized edema; M79.605 Pain in left leg; M79.604 Pain in right leg; R06.02 Shortness of breath; F11.20 Opioid dependence, uncomplicated
CPT/HCPCS: 36415; 80053; 83735; 83880; 84439; 84443; 85025; 93970; 99282; 99284

== ENCOUNTER 2025-05-18 15:05 | Outpatient (REF) | payer MEDICAID, SELFPAY ==
--- OUTSIDE RECORDS SUMMARY | 2025-05-13 15:15 | XMS_ITS | Encounter Summary ---
Author Organization [employer] Address [address] [facility] [address] [place] [address] Care Team Providers Care Social Work Administrator Name Role Phone Mini Hassan MD Primary Care Provider [phone] Reason for Visit * Reason Comments Consult Panorex taken Encounter Details Date Type Department Care Team ([facility] st Contact Info) Description 05/13/2025 3:15 PM EDT Office Visit [facility] [address] [place], [place] [phone] Jones Torres, DMD [address] [place], [place] [phone] Social History Tobacco Use Types Packs/Day Years Used Date Smoking Tobacco: Former Cigarettes 0.3 0.5 Passive Smoke Exposure: Past Smokeless Tobacco: Former Tobacco Cessation:Counseling Given: Not Answered Comments:Currently smokes 1 pack of cig a month and vape daily ( All day ) Alcohol Use Standard Drinks/Week Comments Defer 0 (1 standard drink = 0.6 oz pur e alcohol) Depression Answer Date Recorded Patient Health Questionnaire-9 Score 10 05/16/2023 Housing Stability Answer Date Recorded What is your housing situation today? I have akin brewer 07/10/[address] you li ve. Do you have problems with any of the following? None of the above 07/10/2023 Food Insecurity Answer Date Recorded Within the past 12 months, y ou worried that your food would run out before you got money to buy more: Never True 07/10/2023 Within the past 12 months,th e food you bought just didn't last and you didn't have enough money to get more: Never True Transportation Answer Date Recorded In the past 12 months, has l ack of transportation kept you from medical appts, meetings, work or from getting things needed for daily living? No 07/10/2023 Utilities Answer Date Recorded In the past 12 months, has t he electric, gas, oil or water company threatened to shut off services in your home? No 07/10/2023 Depression Answer Date Recorded Patient Health Questionnaire-2 Score 3 05/16/2023 Comments No Sex and Gender Information Value Date Recorded Sex Assigned at Female 07/24/2022 10:33 AM EDT Legal Sex Female 10:33 AM EDT Gender Identity Female 07/24/2022 10:33 AM EDT Sexual Orientation Straight 07/24/2022 10 :33 AM EDT documented as of this encounter Last Filed Vital Signs Vital Sign Reading Time Taken Comments Blood Pressure 124/72 05/13/2025 2:52 PM EDT Pulse 70 05/13/2025 2:52 PM EDT Temperature - - Respiratory Rate - - Oxygen Saturation - - Inhaled Oxygen Concentration - - Weight - - Height - - Body Mass Index - - documented in this encounter Plan of Treatment Upcoming Encounters Date Type Department Care Team (Late st Contact Info) Description 05/20/2025 1:30 PM EDT Office Visit [facility] [address] [place] [address] Jones Torres DMD [address] [place], [place] [phone] documented as of this encounter Visit Diagnoses Not on filedocumented in this encounter Additional Health Concerns Assessment Noted Time PHQ-9 Depression Total Score: 10 023 10:46 AM EDT documented as of this encounter Care Teams Social Work Administrator Relationship Specialty Start Date End Date Mini Hassan MD [address] [place] [address] PCP - General Internal Medicine 12/28/17 documented as of this encounter
--- OUTSIDE RECORDS SUMMARY | 2025-05-18 16:45 | XMS_ITS | Encounter Summary ---
Author Organization [employer] Address [address] [facility] [address] [place] [address] Care Team Providers Care Acetylene Torch Operator Name Role Phone Mini Hassan MD Primary Care Provider [phone] Reason for Visit * Reason Comments Med Refill Encounter Details Date Type Department Care Team (Late Contact Info) Description 06/18/2023 Refill [facility] [address] [place], [place] [phone] Jody Hathaway MD [address] [place], [place] [phone] Social History Tobacco Use Types Packs/Day Years Used Date Smoking Tobacco: Former Cigarettes 0.3 0.5 Passive Smoke Exposure: Past Smokeless Tobacco: Former Comments:Currently smokes 1 pack of cig a month and vape daily ( All day ) Alcohol Use Standard Drinks/Week Comments Defer 0 (1 standard drink = 0.6 oz pur e alcohol) Depression Answer Date Recorded Patient Health Questionnaire-9 Score 10 05/16/2023 Depression Answer Date Recorded Patient Health Questionnaire-2 Score 3 05/16/2023 Comments No Sex and Gender Information Value Date Recorded Sex Assigned at Female 07/24/2022 10:33 AM EDT Legal Sex Female 10:33 AM EDT Gender Identity Female 07/24/2022 10:33 AM EDT Sexual Orientation Straight 07/24/2022 10 :33 AM EDT documented as of this encounter Plan of Treatment Upcoming Encounters Date Type Department Care Team (Late Contact Info) Description 05/20/2025 1:30 PM EDT Office Visit [facility] [address] [place], [place] [phone] Jones Torres DMD [address] [place] [address] documented as of this encounter Visit Diagnoses Not on filedocumented in this encounter Additional Health Concerns Assessment Noted Time PHQ-9 Depression Total Score: 10 023 10:46 AM EDT documented as of this encounter Care Teams Acetylene Torch Operator Relationship Specialty Start Date End Date Mini Hassan MD [address] [place] [address] PCP - General Internal Medicine 12/28/17 documented as of this encounter
--- OUTSIDE RECORDS SUMMARY | 2025-05-18 16:45 | XMS_ITS | Encounter Summary ---
Author Organization [email or web address] Address [address] [place] [address] Care Team Providers Care Joist Setter Name Role Phone Mini Hassan MD Primary Care Provider [phone] Encounter Details Date Type Department Care Team (Late st Contact Info) Description 04/18/2024 Telephone [facility] [address] [place], [place] [phone] Haleigh La, DDS [address] [place] [address] Social History Tobacco Use Types Packs/Day Years [...] AM EDT documented as of this encounter Miscellaneous Notes * Telephone Encounter - Joie Rust - 04/18/2024 8:17 AM EDT Patient is calling to see if u can send her medication for infection .shes currently waiting for anapt w tysono for extraction documented in this encounter Plan of Treatment Upcoming Encounters Date Type Department Care Team (Late st Contact Info) Description 05/20/2025 1:30 PM EDT Office Visit [facility] [address] [place] [address] Jones Torres, CHON [address] [place] [address] documented as of this encounter Visit Diagnoses Not on filedocumented in this encounter Additional Health Concerns Assessment Noted Time PHQ-9 Depression Total Score: 10 023 10:46 AM EDT documented as of this encounter Care Teams Joist Setter Relationship Specialty Start Date End Date Mini Hassan MD [address] [place] [address] PCP - General Internal Medicine 12/28/17 documented as of this encounter
--- OUTSIDE RECORDS SUMMARY | 2025-05-18 16:45 | XMS_ITS | Encounter Summary ---
Author Organization [employer] Address [address] [facility] [address] [place] [address] Care Team Providers Care Salesperson Sewing Machines Name Role Phone Mini Hassan MD Primary Care Provider [phone] Reason for Visit * Reason Onset Date Comments [place] 07/04/2023 Encounter Details Date Type Department Care Team ([facility] st Contact Info) Description 07/04/2023 Telephone [facility] ADULT DENTAL [address] [place] [address] Haleigh La DDS [address] [place] [address] [place] Social History Tobacco Use Types Packs/Day Years [...] housing situation today? I have akin brewer 07/03/[address] you li ve. Do you have problems with any of the following? None of the above 07/03/2023 Food Insecurity Answer Date Recorded Within the past 12 months, y ou worried that your food would run out before you got money to buy more: Never True 07/03/2023 Within the past 12 months,th e food you bought just didn't last and you didn't have enough money to get more: Never True 06/2023 Transportation Answer Date Recorded In the past 12 months, has l ack of transportation kept you from medical appts, meetings, work or from getting things needed for daily living? No 07/03/2023 Utilities Answer Date Recorded In the past 12 months, has t he electric, gas, oil or water company threatened to shut off services in your home? No 07/03/2023 Depression Answer Date Recorded Patient Health Questionnaire-2 Score 3 05/16/2023 Comments No Sex and Gender Information Value Date Recorded Sex Assigned at Female 07/24/2022 10:33 AM EDT Legal Sex Female 10:33 AM EDT Gender Identity Female 07/24/2022 10:33 AM EDT Sexual Orientation Straight 07/24/2022 10 :33 AM EDT documented as of this encounter Miscellaneous Notes * Telephone Encounter - Haleigh La DDS - 07/05/2023 11:15 AM EDT Of course, no problem! Thanks, Dr. Burden * Telephone Encounter - Vicki Calderón - 07/04/2023 11:28 AM EDT Patient had RCT with Dr. Mcneal in April. Notes state patient should be coming in for crown or comp but it was not active requested. The temp filling of RCT fell out. She is currently scheduled to come and see you for RCT on 07/24. Can that appt be amended for crown or What is recommended? documented in this encounter Plan of Treatment Upcoming Encounters Date Type Department Care Team (Late st Contact Info) Description 05/20/2025 1:30 PM EDT Office Visit [facility] ADULT DENTAL [address] [place] [address] Jones Torres, DMD [address] [place] [address] documented as of this encounter Visit Diagnoses Not on filedocumented in this encounter Additional Health Concerns Assessment Noted Time PHQ-9 Depression Total Score: 10 023 10:46 AM EDT documented as of this encounter Care Teams Salesperson Sewing Machines Relationship Specialty Start Date End Date Mini Hassan MD [address] [place] [id number] PCP - General Internal Medicine 12/28/17 documented as of this encounter
--- OUTSIDE RECORDS SUMMARY | 2025-05-18 16:45 | XMS_ITS | Encounter Summary ---
Author Organization [employer] Address [address] [facility] 7t [place] [address] Care Team Providers Care Manager Community Development Name Role Phone Mini Hassan MD Primary Care Provider Encounter Details Date Type Department Care Team (Late Contact Info) Description 03/02/2023 Orders Only [facility] MED & PEDS [address] [place], [place] [phone] Mini Hassan MD [address] [place], [place] [phone] Rhinitis medicamentosa (Primary Dx) Social History Tobacco Use Types Packs/Day Years Used Date Smoking Tobacco: Former Cigarettes 0.3 0.5 Passive Smoke Exposure: Never Smokeless Tobacco: Former Alcohol Use Standard Drinks/Week Comments Defer 0 (1 standard drink = 0.6 oz pur e alcohol) PHQ-2 Answer Date Recorded Patient Health Questionnaire-2 Score 2 02/28/2023 Comments Unknown Sex and Gender Information Value Date Recorded Sex Assigned at Female 07/24/2022 10:33 AM EDT Legal Sex Female 10:33 AM EDT Gender Identity Female 07/24/2022 10:33 AM EDT Sexual Orientation Straight 07/24/2022 10 :33 AM EDT documented as of this encounter Plan of Treatment Upcoming Encounters Date Type Department Care Team (Late Contact Info) Description 05/20/2025 1:30 PM EDT Office Visit [facility] ADULT DENTAL [address] [place], [place] [phone] Jones Torres DMD [address] [place], [place] [phone] documented as of this encounter Visit Diagnoses Diagnosis Rhinitis medicamentosa- Primary Other diseases of nasal cavity and sinuses documented in this encounter Additional Health Concerns Assessment Noted Time PHQ-9 Depression Total Score: 8 02/29/20 23 10:36 AM EDT documented as of this encounter Care Teams Manager Community Development Relationship Specialty Start Date End Date Mini Hassan MD [address] [place] [id number] PCP - General Internal Medicine 12/28/17 documented as of this encounter
--- OUTSIDE RECORDS SUMMARY | 2025-05-18 16:45 | XMS_ITS | Encounter Summary ---
Author Organization [employer] Address [address] [facility] [facility] [address] [place] [address] Care Team Providers Care Safety Council Director Name Role Phone Mini Hassan MD Primary Care Provider [phone]- [phone] Encounter Details Date Type Department Care Team ([facility] st Contact Info) Description 11/09/2023 Orders Only [facility] MED & PEDS [address] [place], [place] [phone] Mini Hassan MD [address] [place], [place] [phone] Social History Tobacco Use Types Packs/Day Years [...] 05/20/2025 1:30 PM EDT Office Visit [facility] ADULT DENTAL [address] [place] [address] Jones Torres, CHON [address] [place] [address] documented as of this encounter Visit Diagnoses Not on filedocumented in this encounter Additional Health Concerns Assessment Noted Time PHQ-9 Depression Total Score: 10 023 10:46 AM EDT documented as of this encounter Care Teams Safety Council Director Relationship Specialty Start Date End Date Mini Hassan MD [address] [place] [address] PCP - General Internal Medicine 12/28/17 documented as of this encounter
--- OUTSIDE RECORDS SUMMARY | 2025-05-18 16:45 | XMS_ITS | Encounter Summary ---
Author Organization [employer] Address [address] [facility] [address] [place] [address] Care Team Providers Care Ring Facer Name Role Phone Mini Hassan MD Primary Care Provider [phone]- [phone] Reason for Visit * Reason Onset Date Comments Lab Orders 05/18/2025 Encounter Details Date Type Department Care Team ([facility] st Contact Info) Description 05/18/[address] [facility] MEDICINE [address] [place] [address] Mini Hassan MD [address] [place], [place] [phone] Lab Orders Social History Tobacco Use Types Packs/Day Years [...] encounter Miscellaneous Notes * Telephone Encounter - Noemi Hannon RN - 05/18/2025 10:38 AM EDT TC to pt. Pt needs TSPOT for work. RN placed orders and explained to pt she does not need an appointment for the lab to be drawn. Pt verbalized understanding and agreement with the plan of care. * Telephone Encounter - Michaelle Summers - 05/18/2025 8:23 AM EDT Tc from pt requesting an order for TB test Contact pt at [phone] documented in this encounter Plan of Treatment Upcoming Encounters Date Type Department Care Team (Late st Contact Info) Description 05/20/2025 1:30 PM EDT Office Visit [facility] ADULT DENTAL [address] [place] [address] Jones Torres, DMD [address] [place] [address] Scheduled Orders Name Type Priority Associated Diagnoses Orde r Schedule T-SPOT .TB Lab Routine Tuberculosis screening Expected: 05/18/2025 (Approximate), Expires: 05/18/2026 documented as of this encounter Visit Diagnoses Diagnosis Tuberculosis screening- Primary Screening examination for pulmonary tuberculosis documented in this encounter Additional Health Concerns Assessment Noted Time PHQ-9 Depression Total Score: 10 023 10:46 AM EDT documented as of this encounter Care Teams Ring Facer Relationship Specialty Start Date End Date Mini Hassan MD [address] [place] [id number] PCP - General Internal Medicine 12/28/17 documented as of this encounter
--- OUTSIDE RECORDS SUMMARY | 2025-05-18 16:45 | XMS_ITS | Encounter Summary ---
Author Organization [employer] Address [address] [place] [address] Care Team Providers Care Analyzer Sales Name Role Phone Mini Hassan MD Primary Care Provider [phone] Encounter Details Date Type Department Care Team (Late st Contact Info) Description 05/01/2024 Telephone [facility] ADULT DENTAL [address] [place], [place] [phone] Lopez Hawkins DDS [address] [place], [place] [phone] Social History Tobacco Use Types Packs/Day Years [...] encounter Miscellaneous Notes * Telephone Encounter - Dc Reed DMD - 05/01/2024 10:14 AM EDT Please follow up with Dr. Hawkins * Telephone Encounter - Joie Rust - 05/01/2024 9:35 AM EDT Patient has an apt in sept w you for extraction she states her tooth is infected again can u send her something for infection . documented in this encounter Plan of Treatment Upcoming Encounters Date Type Department Care Team (Late st Contact Info) Description 05/20/2025 1:30 PM EDT Office Visit [facility] ADULT DENTAL [address] [place] [address] Jones Torres DMD [address] [place] [address] documented as of this encounter Visit Diagnoses Not on filedocumented in this encounter Additional Health Concerns Assessment Noted Time PHQ-9 Depression Total Score: 10 023 10:46 AM EDT documented as of this encounter Care Teams Analyzer Sales Relationship Specialty Start Date End Date Mini Hassan MD [address] [place] [address] PCP - General Internal Medicine 12/28/17 documented as of this encounter
--- OUTSIDE RECORDS SUMMARY | 2025-05-18 16:45 | XMS_ITS | Clinical Summary ---
Author Organization [facility] Address [address] [place] [address] Care Team Providers Care Clerk Checker Name Role Phone Unavailable Primary Care Provider Unavailabl e Surgical History Surgery Date Site/Laterality Comments OTHER SURGICAL HISTORY PROCEDURE: DENIES PREVIOUS SURGERY Medical History Medical History Date Comments Tonsillolith DX:Tonsillolith Chronic back pain DX:Chronic pam k pain Family History Medical History Relation Name Comments Breast cancer Aunt 1 Diabetes Father Hypertension Mother Relation Name Status Comments Aunt 1 Aunt 2 Alive breast cancer ? late 30's Brother Alive healthy Father Alive depression Mother Alive healthy Paternal Grandfather DM Social History Tobacco Use Types Packs/Day Years Used Date Smoking Tobacco: Former Cigarettes Smokeless Tobacco: Never Alcohol Use Standard Drinks/Week Comments Yes 0 (1 standard drink = 0.6 oz pur e alcohol) Comments Unknown Sex and Gender Information Value Date Recorded Sex Assigned at Not on file Legal Sex Female 8:21 PM EST Gender Identity Not on file Sexual Orientation Not on file Obstetrics History Plan of Treatment Health Maintenance Due Date Last Done Comments DTaP,Tdap,and Td Vaccines (1 - Tdap) 2005 Hepatitis B Vaccines (1 of 3 - 19+ 3-dose series) 2005 Cervical Cancer Screening: P ap Smear 2007 COVID-19 Vaccine ( - 2023-2 5 season) 2024 Depression Screening 09/24/2024 Influenza Vaccine (#1) 2025 HIB Vaccines Aged Out No longer eligi ble based on patient's age to complete this topic HPV Vaccines Aged Out No longer eligi ble based on patient's age to complete this topic Hepatitis A Vaccines Aged Out No long er eligible based on patient's age to complete this topic IPV Vaccines Aged Out No longer eligi ble based on patient's age to complete this topic MMR Vaccines Aged Out No longer eligi ble based on patient's age to complete this topic Meningococcal ACWY Vaccine Aged Out N o longer eligible based on patient's age to complete this topic Meningococcal B Vaccine Aged Out No l onger eligible based on patient's age to complete this topic Pneumococcal Vaccine: Pediat rics (0 to 5 Years) and At-Risk Patients (6 to 49 Years) Aged Out No longer eligible b ased on patient's age to complete this topic RSV Immunization Patients Un ravi 20 months Aged Out No longer eligible b ased on patient's age to complete this topic Varicella Vaccines Aged Out No longer eligible based on patient's age to complete this topic
--- OUTSIDE RECORDS SUMMARY | 2025-05-18 16:45 | XMS_ITS | Encounter Summary ---
Author Organization [employer] Address [address] [facility] [address] [place] [address] Care Team Providers Care Cuprous Chloride Helper Name Role Phone Mini Hassan MD Primary Care Provider [phone] Reason for Visit * Reason Onset Date Comments medication 10/11/2023 Encounter Details Date Type Department Care Team ([facility] st Contact Info) Description 10/11/2023 Telephone [facility] ADULT DENTAL [address] [place], [place] [phone] Lopez Hawkins DDS [address] [place], [place] [phone] medication Social History Tobacco Use Types Packs/Day Years [...] encounter Miscellaneous Notes * Telephone Encounter - Vicki Calderón - 2023 10:55 AM EST Patient had script of tylenol with codeine #3 sent to [facility] pharmacy in [facility]. They only had 8 pills. She called and verified that medication is available at [facility] pharmacy. She is requesting new script for remainder agustina sent to [facility] pharmacy. Pharmacy at [facility] is aware that request is being sent for patient to have script sent in. * Telephone Encounter - Dc Reed DMD - 2023 8:06 AM EST Please follow up this medication with Dr. Shruthi Reed * Telephone Encounter - Vicki Calderón - 10/11/2023 4:05 PM EST Medication was sent to [facility] but they are back order. Patient called [facility] pharmacy and they do have in stock. Can medication be resent to [facility] pharmacy documented in this encounter Plan of Treatment Upcoming Encounters Date Type Department Care Team (Late st Contact Info) Description 05/20/2025 1:30 PM EDT Office Visit [facility] CH[facility] ADULT DENTAL [address] [place] [address] Jones Torres DMD [address] [place] [address] documented as of this encounter Visit Diagnoses Not on filedocumented in this encounter Additional Health Concerns Assessment Noted Time PHQ-9 Depression Total Score: 10 023 10:46 AM EDT documented as of this encounter Care Teams Cuprous Chloride Helper Relationship Specialty Start Date End Date Mini Hassan MD [address] [place] [address] PCP - General Internal Medicine 12/28/17 documented as of this encounter
--- OUTSIDE RECORDS SUMMARY | 2025-05-18 16:45 | XMS_ITS | Encounter Summary ---
Author Organization [employer] Address [address] [facility] 7[address] [place] [address] Care Team Providers Care Linter Tender Name Role Phone Mini Hassan MD Primary Care Provider [phone] Reason for Visit * Reason Onset Date Comments front tooth fell out 05/14/2023 Encounter Details Date Type Department Care Team (Late st Contact Info) Description 05/14/2023 Telephone [facility] ADULT DENTAL [address] [place] [address] Haleigh La DDS [address] [place] [address] front tooth fell out Social History Tobacco Use Types Packs/Day Years [...] AM EDT documented as of this encounter Functional Status * Over the past 2 weeks, how often have you been bothered by any of the following problems? Question Answer Date of Assessment Author Patient Health Questionnaire-2 Score 3 04/25 10:46 AM EDT Carlie Rocha [place] * If you checked off any problems on this questionnaire so far, Question Answer Date of Assessment Author How difficult have these problems made it for you to do your work, take care of things at home, or get along with other people? Extremely difficult 05/16/2023 10:46 AM Carlie Vera MA * Over the past 2 weeks, how often have you been bothered by any of the following problems? Question Answer Date of Assessment Author Little interest or pleasure in doing things Several days 05/16/2023 10:46 AM Carlie Vera MA Feeling down, depressed, or hopeless More than half the days 05/16/2023 10:46 AM Carlie Vera MA Trouble falling or staying asleep, or sleeping too much Nearly every day 05/16/2023 10:46 AM Carlie Vera [place] Feeling tired or having little energy More than half the days 05/16/2023 10:46 AM Carlie Vera [place] Poor appetite or overeating Several days 05/16/2023 10:46 AM Carlie Vera MA Feeling bad about yourself - or that you are a failure or have let yourself or your family down Not at all 05/16/2023 10:46 AM Carlie Vera MA Trouble concentrating on things, such as reading the newspaper or watching television Several days 05/16/2023 10:46 AM Carlie Vera MA Moving or speaking so slowly that other people could have noticed? Or the opposite - being so fidgety or restless that you have been moving around a lot more than usual. Not at all 05/16/2023 10:46 AM Carlie Vera MA Thoughts that you would be better off or hurting yourself in some way Not at all 05/16/2023 10:46 AM Carlie Vera MA Patient Health Questionnaire-9 Score 10 05/16/2023 10:46 AM Carlie Vera MA documented as of this encounter Miscellaneous Notes * Telephone Encounter - Vicki Calderón - 05/14/2023 8:51 AM EDT Patient was here on 04/03 for emergency pain front teeth. She called back to say that over the weekend her front tooth fell out from the gumline and has nub still in gum. She is not in pain only sensitivity when eating or drinking. She has an appt on 05/29 for comp. Is this something that can wait until then or does she need to come sooner? documented in this encounter Plan of Treatment Upcoming Encounters Date Type Department Care Team (Late st Contact Info) Description 05/20/2025 1:30 PM EDT Office Visit [facility] ADULT DENTAL [address] [place] [address] Jones Torres DMD [address] [place] [address] documented as of this encounter Visit Diagnoses Not on filedocumented in this encounter Additional Health Concerns Assessment Noted Time PHQ-9 Depression Total Score: 8 02/29/20 23 10:36 AM EDT documented as of this encounter Care Teams Linter Tender Relationship Specialty Start Date End Date Mini Hassan MD [address] [place] [address] PCP - General Internal Medicine 12/28/17 documented as of this encounter
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
--- OUTSIDE RECORDS SUMMARY | 2025-05-18 16:45 | XMS_ITS | Encounter Summary ---
Author Organization [employer] Address [address] [facility] [address] [place] [address] Care Team Providers Care Hub Lead Name Role Phone Mini Hassan MD Primary Care Provider [phone] Reason for Visit * Reason Onset Date Comments Medication Question 02/28/2023 Encounter Details Date Type Department Care Team ([facility] st Contact Info) Description 02/28/2023 Telephone [facility] CHC MED & PEDS [address] [place], [place] [phone] Mini Hassan MD [address] [place] [address] Medication Question Social History Tobacco Use Types Packs/Day Years [...] Answer Date of Assessment Author Patient Health Questionnaire -2 Score 2 02/28/2023 10:36 AM EDT Erwin Bhatti MA * If you checked off any problems on this questionnaire so far, Question Answer Date of Assessment Author How difficult have these problems made it for you to do your work, take care of things at home, or get along with other people? Somewhat difficult 02/28/2023 10:36 AM Erwin Mcnair MA * Over the past 2 weeks, how often have you been bothered by any of the following problems? Question Answer Date of Assessment Author Little interest or pleasure in doing things Several days 02/28/2023 10:36 AM Codie Mcnair MA Feeling down, depressed, or hopeless Several days 02/28/2023 10:36 AM Erwin Mcnair MA Trouble falling or staying asleep, or sleeping too much Not at all 02/28/2023 10:36 AM Erwin Mcnair MA Feeling tired or having little energy Nearly every day 02/28/2023 10:36 AM Erwin Mcnair MA Poor appetite or overeating Nearly every day 02/28/2023 10:36 AM Erwin Mcnair MA Feeling bad about yourself - or that you are a failure or have let yourself or your family down Not at all 02/28/2023 10:36 AM Erwin Mcnair MA Trouble concentrating on things, such as reading the newspaper or watching television Not at all 02/28/2023 10:36 AM Erwin Mcnair MA Moving or speaking so slowly that other people could have noticed? Or the opposite - being so fidgety or restless that you have been moving around a lot more than usual. Not at all 02/28/2023 10:36 AM Erwin Mcnair MA Thoughts that you would be better off or hurting yourself in some way Not at all 02/28/2023 10:36 AM Erwin Mcnair MA Patient Health Questionnaire-9 Score 8 02/28/2023 10:36 AM Erwin Mcnair MA documented as of this encounter Miscellaneous Notes * Telephone Encounter - Rolanda Park RN - 02/28/2023 2:57 PM EDT This RN was messaging with pt via [employer]. RN let pt know PCP's message: Pt's pharmacy was called. The requested clarification was provided: 3 tab in the morning, 3 tabs in the evening x 5 days. Pt aware and will p/u medication. Pt to f/u PRN. * Telephone Encounter - Sarah Hopper - 02/28/2023 11:42 AM EDT Tc from patient calling in regards to medication directions for Nirmatrelvir&Ritonavir 150/100 (Paxlovid, 150/100,) 10 x 150 MG & 10 x 100MG tablet therapy pack. Pharmacy needs clarificationson directions. documented in this encounter Plan of Treatment Upcoming Encounters Date Type Department Care Team ([facility] st Contact Info) Description 05/20/2025 1:30 PM EDT Office Visit [facility] ADULT DENTAL [address] [place] [address] Jnoes Torres, DMD [address] [place] [address] documented as of this encounter Visit Diagnoses Not on filedocumented in this encounter Additional Health Concerns Assessment Noted Time PHQ-9 Depression Total Score: 8 02/29/20 23 10:36 AM EDT documented as of this encounter Care Teams Hub Lead Relationship Specialty Start Date End Date Mini Hassan MD [address] [place] [address] PCP - General Internal Medicine 12/28/17 documented as of this encounter
[2025-05-21 12:04] LABS: TS Negative Control Passed; TS Panel A 0; TS Panel B 0; TS Positive Control Passed; TSpotTB Negative (Negative)
== END 2025-05-18 15:06 | disposition home or self-care (01) ==
LOC: HO.CHCLDS 15:05
PROVIDERS: Visit Provider Internal Medicine
DX: Z11.1 Encounter for screening for respiratory tuberculosis (principal)
CPT/HCPCS: 36415; 86481

== ENCOUNTER 2025-07-14 08:23 | Outpatient (REF) | payer MEDICAID, SELFPAY ==
--- OUTSIDE RECORDS SUMMARY | 2025-07-10 10:30 | XMS_ITS | Encounter Summary ---
Author Organization [employer] Address [address] [place] [address] Care Team Providers Care Venetian Blind Tape Cutter Name Role Phone Mini Hassan MD Primary Care Provider [phone] Reason for Visit * Reason Comments Dentures Encounter Details Date Type Department Care Team ([facility] st Contact Info) Description 07/10/2025 10:30 AM EDT Office Visit [facility] ADULT DENTAL [address] [place] [address] Haleigh La DDS [address] [place] [address] Edentulism (Primary Dx) Social History Tobacco Use Types [...] AM EDT documented as of this encounter Progress Notes * Haleigh La DDS - 07/10/2025 10:30 AM EDT Patient ID: Leilani Campbell is a 39 y.o. female. Time Out: Timeout Date: 07/10/25, Timeout Time: 1040 (Time out for bite registration) Location: [facility] Tooth: Maxilla and Mandible Procedure: Dentures Bite Registration Verified the above with patient, nursing assistant, and provider. Confirmed via patient's chart, intraorally and by radiographs. Third Officer: not applicable Chief Complaint Patient presents with Dentures Medical Hx: Vitals: There were no vitals taken for this visit. Medications, Med Hx reviewed with patient and updated in chart. Consent Obtained: The risks, benefits, indications, potential complications, and alternatives were explained to the patient and informed consent was obtained with good understanding. Treatment Provided: Dental procedures in this visit D5110.8 - BITE REGISTRATION (Completed) Service provider: Haleigh La DDS Billing provider: Haleigh La DDS Occlusal Wax rims tried in & records taken: -Vertical Dimension -Midline -Interpupillary line -Occlusal Relationship -Smile Line -Canine [place] Bite Registration taken with: wax rim Shade: A1 Size: M Sent to Lab for tooth set up in wax Lab used: [facility] Lab Lab Due Date: 07/17/2025 Patient discharged alert, oriented, and in stable condition. NV: Wax try-in Cooky Machine Operator: Lara Medina Dentist: Haleigh La DDS documented in this encounter Plan of Treatment Upcoming Encounters Date Type Department Care Team (Late st Contact Info) Description 07/21/2025 10:00 AM EDT Office Visit [facility] ADULT DENTAL [address] [place] [address] Haleigh La DDS [address] [place] [address] Scheduled Orders Name Type Priority Associated Diagnoses Orde r Schedule DENTAL LAB DENTURES AND PARTIALS Dental Routine Ordered: 025 documented as of this encounter Procedures Procedure Name Priority Date/Time Associated Diagnosis Comments BITE REGISTRATION Routine 07/10/2025 10:30 AM EDT Edentulism documented in this encounter Visit Diagnoses Diagnosis Edentulism- Primary documented in this encounter Additional Health Concerns Assessment Noted Time PHQ-9 Depression Total Score: 023 10:46 AM EDT documented as of this encounter Care Teams Venetian Blind Tape Cutter Relationship Specialty Start Date End Date Mini Hassan MD [address] [place] [address] PCP - General Internal Medicine 12/28/17 documented as of this encounter
--- NOTE | ~2025-07-14 | US_ITS ---
EXAMINATION: US LOWER EXTREMITY VENOUS (REFLUX EXAM), BILATERAL CLINICAL INFORMATION: Chronic venous insufficiency. COMPARISON: DVT ultrasound dated November 03, 2023. TECHNIQUE: Color flow triplex imaging and compression Doppler was performed to evaluate both the deep and the superficial systems bilaterally. To evaluate the superficial system, the examination was performed in the upright position. Color-flow Doppler ultrasound and compression ultrasound were utilized. In addition, maneuvers were utilized to demonstrate reflux. FINDINGS: 1. DEEP VENOUS ULTRASOUND OF THE RIGHT LOWER EXTREMITY: Common Femoral Vein: Compressible, normal respiratory variation and augmented flow. Femoral Vein: Compressible, normal color flow and augmentation. Popliteal Vein: Compressible, normal augmentation. Deep Reflux: There is no evidence of reflux in the deep system in either the common femoral vein, superficial femoral or the popliteal vein. There is no evidence of a Deluca's cyst. 2. SUPERFICIAL ULTRASOUND WITH DOPPLER OF RIGHT LOWER EXTREMITY: GREAT SAPHENOUS VEIN: Saphenofemoral Junction: 0.6 cm; Reflux: 0 ms Proximal Thigh: 0.3 cm; Reflux: 0 ms Mid Thigh: 0.5 cm; Reflux: 0 ms Distal Thigh: 0.4 cm; Reflux: 1204 ms At Knee: 0.3 cm; Reflux: 0 ms Proximal Calf: 0.2 cm; Reflux: 0 ms Mid Calf: 0.2 cm; Reflux: 0 ms Distal Calf: 0.3 cm; Reflux: 0 ms DUPLICATED MEDIAL GREAT SAPHENOUS VEIN: Diameter: None imaged Reflux: NA DUPLICATED LATERAL GREAT SAPHENOUS VEIN: Diameter: 0.2-0.4 cm. Reflux: NA SMALL SAPHENOUS VEIN: Saphenopopliteal Junction: 0.3 cm; Reflux: 0 ms Proximal: 0.2 cm; Reflux: 0 ms Distal: Not documented. cm; Reflux: 0 ms VEIN OF GIACOMINI: Size: NA Reflux: NA PERFORATORS: Location: Small saphenous vein, mid segment. Mid to distal thigh and proximal calf. Size: 0.2-0.3 cm. Reflux: NA VARICOSITIES: Location: None imaged. Size: NA Reflux: NA 3. DEEP VENOUS ULTRASOUND OF THE LEFT LOWER EXTREMITY: Common Femoral Vein: Compressible, normal respiratory variation and augmented flow. Femoral Vein: Compressible, normal color flow and augmentation. Popliteal Vein: Compressible, normal augmentation. Deep Reflux: 948 ms reflux in the common femoral vein. There is no evidence of a Deluca's cyst. 4. SUPERFICIAL ULTRASOUND WITH DOPPLER OF LEFT LOWER EXTREMITY: GREAT SAPHENOUS VEIN: Saphenofemoral Junction: 0.8 cm; Reflux: 0 ms Proximal Thigh: 0.5 cm; Reflux: 0 ms Mid Thigh: 0.1 cm; Reflux: 0 ms Distal Thigh: 0.2 cm; Reflux: 0 ms At Knee: 0.3 cm; Reflux: 0 ms Proximal Calf: 0.2 cm; Reflux: 0 ms Mid Calf: 0.3 cm; Reflux: 0 ms Distal Calf: 0.2 cm; Reflux: 0 ms DUPLICATED MEDIAL GREAT SAPHENOUS VEIN: Diameter: None imaged Reflux: NA DUPLICATED LATERAL GREAT SAPHENOUS VEIN: Diameter: 0.3-0.5 cm. Reflux: NA SMALL SAPHENOUS VEIN: Saphenopopliteal Junction: 0.3 cm; Reflux: 0 ms Proximal: 0.3 cm; Reflux: 0 ms Distal: 0.2 cm; Reflux: 1580 ms VEIN OF GIACOMINI: Size: NA Reflux: NA PERFORATORS: Location: Mid and distal calf. Size: 0.2-0.3 cm. Reflux: NA VARICOSITIES: Location: Small saphenous vein, proximal segment. Proximal thigh and at the knee. Size: 0.25-0.6 cm. Reflux: 1864 ms at the knee level. US/US venous duplex LE BI IMPRESSION: Right: Venous insufficiency, great saphenous vein above the knee. Perforators without reflux. Left: Venous insufficiency, small saphenous vein at the distal calf. Venous insufficiency, common femoral vein. Varices with reflux at the knee level. Perforators without reflux. Electronically signed by: Rufino Weaver MD 07/14/2025 09:49 AM EDT
--- OUTSIDE RECORDS SUMMARY | 2025-07-14 08:32 | XMS_ITS | Encounter Summary ---
Author Organization [employer] Address [address] [place] [address] Care Team Providers Care Attraction Worker Name Role Phone Mini Hassan MD Primary Care Provider [phone] Encounter Details Date Type Department Care Team ([facility] st Contact Info) Description 11/09/2023 Orders Only [facility] CHC MED & PEDS [address] [place], [place] [phone] Mini Hassan MD [address] [place], [place] [phone] Social History Tobacco Use Types Packs/Day Years [...] Description 07/21/2025 10:00 AM EDT Office Visit [facility] ADULT DENTAL [address] [place] [address] Haleigh La, CLAIRES [address] [place] [address] documented as of this encounter Visit Diagnoses Not on filedocumented in this encounter Additional Health Concerns Assessment Noted Time PHQ-9 Depression Total Score: 10 023 10:46 AM EDT documented as of this encounter Care Teams Attraction Worker Relationship Specialty Start Date End Date Mini Hassan MD [address] [place] [address] PCP - General Internal Medicine 12/28/17 documented as of this encounter
--- OUTSIDE RECORDS SUMMARY | 2025-07-14 08:32 | XMS_ITS | Encounter Summary ---
Author Organization [employer] Address [address] [place] [address] Care Team Providers Care Application Support Name Role Phone Mini Hassan MD Primary Care Provider [phone] Encounter Details Date Type Department Care Team (Late st Contact Info) Description 05/01/2024 Telephone [facility] ADULT DENTAL [address] [place], [place] [phone] Lopez Hawkins DDS [address] [place], [place] [phone] Social History Tobacco Use Types Packs/Day Years [...] Description 07/21/2025 10:00 AM EDT Office Visit [facility] ADULT DENTAL [address] [place] [address] [place], DDS [address] [place] [address] documented as of this encounter Visit Diagnoses Not on filedocumented in this encounter Additional Health Concerns Assessment Noted Time PHQ-9 Depression Total Score: 10 023 10:46 AM EDT documented as of this encounter Care Teams Application Support Relationship Specialty Start Date End Date Mini Hassan MD [address] [place] [address] PCP - General Internal Medicine 12/28/17 documented as of this encounter
--- OUTSIDE RECORDS SUMMARY | 2025-07-14 08:32 | XMS_ITS | Encounter Summary ---
Author Organization [employer] Address [address] 7t [place] [address] Care Team Providers Care Licensed Retail Supervisor Name Role Phone Mini Hassan MD Primary Care Provider [phone] Reason for Visit * Reason Onset Date Comments medication 10/11/2023 Encounter Details Date Type Department Care Team ([facility] st Contact Info) Description 10/11/2023 Telephone [facility] ADULT DENTAL [address] [place], [place] [phone] Lopez Hawkins DDS [address] [place], [place] [phone] medication Social History Tobacco Use Types Packs/Day [...] of tylenol with codeine #3 sent to [facility] pharmacy in [facility]. They only had 8 pills. She called and verified that medication is available at [facility] pharmacy. She is requesting new script for remainder agustina sent to [facility] pharmacy. Pharmacy at [facility] is aware that request is being sent for patient to have script sent in. * Telephone Encounter - Dc Reed DMD - 2023 8:06 AM EST Please follow up this medication with Dr. Shruthi Reed * Telephone Encounter - Vicki Calderón - 10/11/2023 4:05 PM EST Medication was sent to [facility] but they are back order. Patient called [facility] pharmacy and they do have in stock. Can medication be resent to [facility] pharmacy documented in this encounter Plan of Treatment Upcoming Encounters Date Type Department Care Team (Late st Contact Info) Description 07/21/2025 10:00 AM EDT Office Visit [facility] ADULT DENTAL [address] [place] [address] Haleigh La DDS [address] [place] [address] documented as of this encounter Visit Diagnoses Not on filedocumented in this encounter Additional Health Concerns Assessment Noted Time PHQ-9 Depression Total Score: 10 023 10:46 AM EDT documented as of this encounter Care Teams Licensed Retail Supervisor Relationship Specialty Start Date End Date Mini Hassan MD [address] [place] [address] PCP - General Internal Medicine 12/28/17 documented as of this encounter
--- OUTSIDE RECORDS SUMMARY | 2025-07-14 08:32 | XMS_ITS | Encounter Summary ---
Author Organization [employer] Address [address] [facility] 7t [place] [address] Care Team Providers Care Fitness Director Name Role Phone Mini Hassan MD Primary Care Provider [phone] Reason for Visit * Reason Onset Date Comments front tooth fell out 05/14/2023 Encounter Details Date Type Department Care Team (Late st Contact Info) Description 05/14/[address] [facility] ADULT DENTAL [address] [place] [address] Haleigh La DDS [address] [place] [address] front tooth fell out Social History Tobacco [...] Description 07/21/2025 10:00 AM EDT Office Visit [facility] ADULT DENTAL [address] [place] [address] Haleigh La DDS [address] [place] [address] documented as of this encounter Visit Diagnoses Not on filedocumented in this encounter Additional Health Concerns Assessment Noted Time PHQ-9 Depression Total Score: 8 02/29/20 23 10:36 AM EDT documented as of this encounter Care Teams Fitness Director Relationship Specialty Start Date End Date Mini Hassan MD [address] [place] [address] PCP - General Internal Medicine 12/28/17 documented as of this encounter
--- OUTSIDE RECORDS SUMMARY | 2025-07-14 08:32 | XMS_ITS | Encounter Summary ---
Author Organization [employer] Address [address] [facility] [address] 7t [place] [address] Care Team Providers Care Brake Repairer Railroad Name Role Phone Mini Hassan MD Primary Care Provider [phone]- [phone] Encounter Details Date Type Department Care Team (Late st Contact Info) Description 04/18/2024 Telephone [facility] ADULT DENTAL [address] [place], [place] [phone] Haleigh La, DDS [address] [place] [address] Social History Tobacco Use Types Packs/Day Years [...] Description 07/21/2025 10:00 AM EDT Office Visit [facility] ADULT DENTAL [address] [place] [address] Haleigh La DDS [address] [place] [address] documented as of this encounter Visit Diagnoses Not on filedocumented in this encounter Additional Health Concerns Assessment Noted Time PHQ-9 Depression Total Score: 10 023 10:46 AM EDT documented as of this encounter Care Teams Brake Repairer Railroad Relationship Specialty Start Date End Date Mini Hassan MD [address] [place] [address] PCP - General Internal Medicine 12/28/17 documented as of this encounter
--- OUTSIDE RECORDS SUMMARY | 2025-07-14 08:32 | XMS_ITS | Encounter Summary ---
Author Organization [employer] Address [address] [facility] 7t [place] [address] Care Team Providers Care Manager Credit Name Role Phone Mini Hassan MD Primary Care Provider [phone] Encounter Details Date Type Department Care Team ([facility] st Contact Info) Description 05/22/2025 Results Follow-Up [facility] MED & PEDS [address] [place], [place] [phone] Mini Hassan MD [address] [place] [address] T-SPOT .TB Social History Tobacco Use Types Packs/Day Years [...] [facility] ADULT DENT[facility] [address] [place] [address] Durham-BurdenAlfredo mckeonmia, DDS [address] [place] [address] documented as of this encounter Visit Diagnoses Not on filedocumented in this encounter Additional Health Concerns Assessment Noted Time PHQ-9 Depression Total Score: 10 023 10:46 AM EDT documented as of this encounter Care Teams Manager Credit Relationship Specialty Start Date End Date Mini Hassan MD [address] [place] [address] PCP - General Internal Medicine 12/28/17 documented as of this encounter
--- OUTSIDE RECORDS SUMMARY | 2025-07-14 08:33 | XMS_ITS | Encounter Summary ---
Author Organization [employer] Address [address] 7t [place] [address] Care Team Providers Care Strainer Mill Operator Name Role Phone Mini Hassan MD Primary Care Provider [phone] Reason for Visit * Reason Onset Date Comments [facility] [place] 07/04/2023 Encounter Details Date Type Department Care Team ([facility] st Contact Info) Description 07/04/2023 Telephone [facility] ADULT DENTAL [address] [place] [address] Haleigh La DDS [address] [place] [address] [place] [place] Social History Tobacco Use Types Packs/Day Years [...] Description 07/21/2025 10:00 AM EDT Office Visit [facility] ADULT [facility] [address] [place], [place] [phone] Haleigh La DDS [address] [place] [address] documented as of this encounter Visit Diagnoses Not on filedocumented in this encounter Additional Health Concerns Assessment Noted Time PHQ-9 Depression Total Score: 10 023 10:46 AM EDT documented as of this encounter Care Teams Strainer Mill Operator Relationship Specialty Start Date End Date Mini Hassan MD [address] [place] [address] PCP - General Internal Medicine 12/28/17 documented as of this encounter
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
--- OUTSIDE RECORDS SUMMARY | 2025-07-14 08:33 | XMS_ITS | Encounter Summary ---
Author Organization [employer] Address 75 [facility] 7t [place] [address] Care Team Providers Care Roller Skates Assembler Name Role Phone Mini Hassan MD Primary Care Provider [phone]- [phone] Reason for Visit * Reason Comments Med Refill Encounter Details Date Type Department Care Team (Late Contact Info) Description 06/18/2023 Refill [facility] [address] [place], [place] [phone] Jody Hathaway MD [address] [place], [place] [phone] Social History Tobacco Use Types Packs/Day Years [...] Department Care Team (Late Contact Info) Description 07/21/2025 10:00 AM EDT Office Visit [facility] ADULT DENT[facility] [address] [place], [place] [phone] Haleigh La DDS [address] [place] [address] documented as of this encounter Visit Diagnoses Not on filedocumented in this encounter Additional Health Concerns Assessment Noted Time PHQ-9 Depression Total Score: 10 023 10:46 AM EDT documented as of this encounter Care Teams Roller Skates Assembler Relationship Specialty Start Date End Date Mini Hassan MD [address] [place] [address] PCP - General Internal Medicine 12/28/17 documented as of this encounter
--- OUTSIDE RECORDS SUMMARY | 2025-07-14 08:33 | XMS_ITS | Encounter Summary ---
Author Organization [employer] Address 75 [facility] 7t [place] [address] Care Team Providers Care Ham Passer Name Role Phone Mini Hassan MD Primary Care Provider [phone]- [phone] Reason for Visit * Reason Onset Date Comments Medication Question 02/28/2023 Encounter Details Date Type Department Care Team ([facility] st Contact Info) Description 02/28/2023 Telephone [facility] [address] [place], [place] [phone] Mini Hassan MD [address] [place] [address] Medication Question Social History Tobacco Use Types [...] This RN was messaging with pt via [employer]. RN let pt know PCP's message: Pt's [...] 10:00 AM EDT Office Visit [facility] [address] [place] [address] Durham-Haleigh Burden, DDS [address] [place] [address] documented as of this encounter Visit Diagnoses Not on filedocumented in this encounter Additional Health Concerns Assessment Noted Time PHQ-9 Depression Total Score: 8 02/29/20 23 10:36 AM EDT documented as of this encounter Care Teams Ham Passer Relationship Specialty Start Date End Date Mini Hassan MD [address] [place] [address] PCP - General Internal Medicine 12/28/17 documented as of this encounter
--- OUTSIDE RECORDS SUMMARY | 2025-07-14 08:33 | XMS_ITS | Encounter Summary ---
Author Organization [employer] Address [address] [facility] [address] [place] [address] Care Team Providers Care Medical Office Coordinator Name Role Phone Mini Hassan MD Primary Care Provider Encounter Details Date Type Department Care Team (Late Contact Info) Description 03/02/2023 Orders Only [facility] [address] [place], [place] [phone] Mini Hassan MD [address] [place], [place] [phone] Rhinitis medicamentosa (Primary Dx) Social History Tobacco [...] Description 07/21/2025 10:00 AM EDT Office Visit [facility] [address] [place], [place] [phone] Durham-Burden, Haleigh, DDS [address] [place], [place] [phone] documented as of this encounter Visit Diagnoses Diagnosis Rhinitis medicamentosa- Primary Other diseases of nasal cavity and sinuses documented in this encounter Additional Health Concerns Assessment Noted Time PHQ-9 Depression Total Score: 8 02/29/20 23 10:36 AM EDT documented as of this encounter Care Teams Medical Office Coordinator Relationship Specialty Start Date End Date Mini Hassan MD [address] [place] [address] PCP - General Internal Medicine 12/28/17 documented as of this encounter
== END 2025-07-14 08:24 | disposition home or self-care (01) ==
LOC: HO.US 08:23
PROVIDERS: PCP Internal Medicine
DX: I87.2 Venous insufficiency (chronic) (peripheral) (principal); M79.661 Pain in right lower leg; M79.662 Pain in left lower leg; M79.89 Other specified soft tissue disorders
CPT/HCPCS: 93970

== ENCOUNTER → 2025-07-14 08:57 | Outpatient (BNV) | payer MEDICAID, SELFPAY | PROVIDERS: PCP Internal Medicine; Visit Provider Radiology Diagnostic Radiology | DX: I87.2 Venous insufficiency (chronic) (peripheral) (principal) | CPT/HCPCS: 93970 ==